=== PATIENT | male | born 2000 | race Two or more races ===

== ENCOUNTER 2018-01-08 19:18 | Emergency (ER) | payer OTHER ==
[2018-01-08] MEDS ORDERED: Lidocaine 1% 50 ML MDV INJECT ONE (19:48)
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
== END 2018-01-08 20:58 | disposition home or self-care (01) ==
LOC: JD.ED 19:18
DX: S67.192A Crushing injury of right middle finger, initial encounter (principal); S61.212A Laceration without foreign body of right middle finger without damage to nail, initial encounter; F17.210 Nicotine dependence, cigarettes, uncomplicated; W23.0XXA Caught, crushed, jammed, or pinched between moving objects, initial encounter
CPT/HCPCS: 12001; 99283-25

== ENCOUNTER 2020-02-06 01:53 | Emergency (ER) | payer OTHER ==
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
[2020-02-06] MEDS ORDERED: Sodium Chloride 0.9% 1,000 ML IV SCH (02:45)
[2020-02-06 02:56] LABS: ACETAMINOPHEN 0 ug/mL (10-30)
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
== END 2020-02-06 07:42 | disposition home or self-care (01) ==
LOC: JD.ED 01:53
DX: S02.2XXA Fracture of nasal bones, initial encounter for closed fracture (principal); S00.83XA Contusion of other part of head, initial encounter; F10.129 Alcohol abuse with intoxication, unspecified; F17.210 Nicotine dependence, cigarettes, uncomplicated; Y90.7 Blood alcohol level of 200-239 mg/100 ml; Y04.0XXA Assault by unarmed brawl or fight, initial encounter
CPT/HCPCS: 36415; 70450; 70486; 71045; 72125; 80053; 80306; 80307; 82550; 83605; 83735; 85007; 85027; 93005; 99284; J7030; 93010; 99283

== ENCOUNTER 2020-06-22 18:52 | Emergency (ER) | payer OTHER, BC ==
[2020-06-22] MEDS ORDERED: Diphtheria,Pertussis(Acell),Tetanus Vaccine 0.5 ML Syringe IM ONE (19:05)
[2020-06-22] MEDS ORDERED: Lidocaine 1% 10 ML MDV INJECT ONE (19:05)
--- NOTE | 2020-06-22 19:09 | EDM.PDOC ---
ED HPI GENERAL MEDICAL PROBLEM - General Chief Complaint: Laceration Stated Complaint: FOREHEAD LAC Time Seen by Provider: 06/22/20 18:58 Source of Information: Reports: Patient, RN Notes Reviewed History Limitations: Reports: No Limitations - History of Present Illness INITIAL COMMENTS - FREE TEXT/NARRATIVE: Patient is a 19-year-old male presenting to the emergency department with complaints of a laceration above his left eyebrow. He states around 9 AM this morning, he was working on his truck and he was trying to tighten a bar when it came back and hit him above the eye. He had no loss of consciousness. Denies any vision changes, nausea, or vomiting. He had significant bleeding at the time of the injury, however he squeezed the edges together and put a Band-Aid on it which did stop it. He is unsure when his last tetanus vaccination was. Left Forehead Pain Score (Numeric/FACES): 5 - Related Data Allergies Allergy/AdvReac Type Severity Reaction Status Date / Time No Known Allergies Allergy Verified 06/22/20 19:00 Home Meds: Home Meds . [No Known Home Meds] 02/06/20 [History] Past Medical History - Past Health History Medical/Surgical History: Denies Medical/Surgical History Social & Family History - Family History Family Medical History: No Pertinent Family History - Tobacco Use Tobacco Use Status *Q: Never Tobacco User Second Hand Smoke Exposure: No - Caffeine Use Caffeine Use: Reports: Energy Drinks, Soda, Tea - Recreational Drug Use Recreational Drug Use: No - Living Situation & Occupation Living situation: Reports: Single, with Family (+ friends) Occupation: Employed ([email or web address] ED ROS GENERAL - Review of Systems Review Of Systems: Comprehensive ROS is negative, except as noted in HPI. ED EXAM, SKIN/RASH Exam: See Below Exam Limited By: No Limitations General Appearance: Alert, WD/WN, No Apparent Distress Eye Exam: Bilateral Eye: Normal Inspection, PERRL Head: Normocephalic, Other (3 cm gaping, vertical laceration above the left eyebrow with no active bleeding.) Respiratory/Chest: No Respiratory Distress, Lungs Clear, Normal Breath Sounds, No Accessory Muscle Use, Chest Non-Tender Cardiovascular: Normal Peripheral Pulses, Regular Rate, Rhythm, No Edema, No Gallop, No JVD, No Murmur, No Rub Neurological: Alert, Oriented, CN II-XII Intact, Normal Cognition, Normal Gait, Normal Reflexes, No Motor/Sensory Deficits Psychiatric: Normal Affect, Normal Mood ED SKIN PROCEDURES - Laceration/Wound Repair Left Lower Forehead Appearance: Subcutaneous Anesthetic Type: Local Local Anesthesia - Lidocaine (Xylocaine): 1% Plain Local Anesthetic Volume: 2cc Skin Prep: Chlorhexidine (Hibiciens), Providone-Iodine (Betadine), Saline, Sterile Drape Exploration/Debridement/Repair: Wound Explored, No Foreign Material Found Closed with: Sutures Lac/Wound length In cm: 3 Suture Size: 6-0 # of Sutures: 6 Suture Type: Nylon Sterile Dressing Applied: Nurse Tetanus Status Addressed: Yes Complications: No Course - Vital Signs Last Recorded V/S: Last Vital Signs Temp 98.1 F 06/22/20 18:58 Pulse 90 06/22/20 18:58 Resp 17 06/22/20 18:58 BP 146/89 H 06/22/20 18:58 Pulse Ox 95 06/22/20 18:58 - Orders/Labs/Meds Orders: Active Orders 24 hr Category Date Time Status Vaccines to be Administered [RC] PER UNIT ROUTINE Care 06/22/20 19:05 Active - Re-Assessments/Exams Free Text/Narrative Re-Assessment/Exam: Patient is a 19-year-old male presenting to the emergency department with complaints of a 3 cm laceration above his left eyebrow. This occurred about 9:00 this morning. He states a bar came back and hit him in the eyebrow. He had no loss of consciousness, denies any dizziness or blurred vision. He has had no nausea or vomiting. Exam is unremarkable. He is unsure when his last tetanus vaccination was. We will perform closure with sutures. He will receive an update on his tetanus shot today. See procedure notes for closure. Departure - Departure Time of Disposition: 20:14 Disposition: Home, Self-Care 01 Condition: Good Clinical Impression: Laceration - Discharge Information *PRESCRIPTION DRUG MONITORING PROGRAM REVIEWED*: No *COPY OF PRESCRIPTION DRUG MONITORING REPORT IN PATIENT NIKO: No Instructions: Laceration Care, Adult Referrals: PCP,None [Primary Care Provider] - Forms: ED Department Discharge Additional Instructions: You were seen in the emergency department today for a laceration to your forehead. The wound was cleansed and closed with 6 sutures. These should stay intact for 5 days. After that time they may be removed in the clinic by a nurse. Keep the wound clean and dry. Wash with normal soap and water twice daily. Do not submerge the wound in water. Watch for signs of infection including increased redness, swelling, or purulent drainage. If these should occur, you should be seen either in the clinic or in the emergency department as antibiotic treatment may be needed. Return to the ER as needed. Sepsis Event Note (ED) - Evaluation Sepsis Screening Result: No Definite Risk - Focused Exam Vital Signs: Vital Signs Temp Pulse Resp BP Pulse Ox 06/22/20 18:58 98.1 F 90 17 146/89 H 95 - My Orders Last 24 Hours: My Active Orders 06/22/20 19:05 Vaccines to be Administered [RC] PER UNIT ROUTINE - Assessment/Plan Last 24 Hours: My Active Orders 06/22/20 19:05 Vaccines to be Administered [RC] PER UNIT ROUTINE
== END 2020-06-22 20:20 | disposition home or self-care (01) ==
LOC: JD.ED 18:52
DX: S01.81XA Laceration without foreign body of other part of head, initial encounter (principal); Z23 Encounter for immunization; W22.8XXA Striking against or struck by other objects, initial encounter; Y99.0 Civilian activity done for income or pay
CPT/HCPCS: 12013; 90471; 90715; 99282; 99282-25